=== PATIENT | male | born 1965 | race Two or more races ===

== ENCOUNTER 2024-07-06 09:51 | Emergency (ER) | payer MEDICAID, SELFPAY ==
[2024-07-06 09:52] VITALS: BMI 34.2
[2024-07-06 10:16] VITALS: BP 130/84; PULSE 97; RESP 18; TEMP 37.1; O2SAT 99
--- NOTE | 2024-07-06 10:34 | PD.EDSKIN ---
ED Skin Abcess FB-RME/HPI General Chief complaint: Skin/Abscess/Foreign Body Stated complaint: ABSCESS TO L EYE AND BACK OF HEAD Time Seen by Provider: 07/06/24 10:04 Arrival date/time: 07/06/24 09:51 58-year-old male with medical history significant for diabetes presents emergency department with complaints of abscess to left eyelid as well as to the back of the head patient reports symptoms ongoing for last couple of days patient ports no fever nausea or vomiting patient was seen by PCP and was started on Bactrim Limitations: no limitations Related Data Home Medications ?Medication ?Instructions ?Recorded ?Confirmed naproxen 500 mg tablet 500 mg PO BID 06/19/18 06/19/18 sitagliptin phosphate 50 1 tab PO BID 06/19/18 06/19/18 mg-metformin 1,000 mg tablet (Janumet) Previous Rx's ?Medication ?Instructions ?Recorded clindamycin HCl 150 mg capsule 450 mg (3 x 150 mg) PO TID 7 days 07/06/24 #63 caps hydrocodone 5 mg-acetaminophen 325 1 tab PO BID PRN pain #6 tabs 07/06/24 mg tablet ibuprofen 800 mg tablet 800 mg PO TID PRN pain #30 tabs 07/06/24 Allergies Allergy/AdvReac Type Severity Reaction Status Date / Time No Known Allergies Allergy Verified 07/06/24 09:55 Review of Systems Review of Systems Systems Reviewed: All systems reviewed, normal except as documented Constitutional Constitutional: Reports system reviewed and no additional complaints, except as documented, Denies fever(s) and Denies headache(s) Eyes Eyes: Reports system reviewed and no additional complaints, except as documented and Denies blurry vision ENT Ears, Nose, Mouth, and Throat: Reports system reviewed and no additional complaints, except as documented, Denies headache(s), Denies nasal congestion and Denies nasal discharge Cardiovascular Cardiovascular: Reports system reviewed and no additional complaints, except as documented, Denies chest pain and Denies dyspnea Respiratory Respiratory: Reports system reviewed and no additional complaints, except as documented, Denies chest congestion, Denies cough and Denies dyspnea Gastrointestinal Gastrointestinal: Reports system reviewed and no additional complaints, except as documented and Denies abdominal pain Integumentary/Breasts Skin/Breast: Reports system reviewed and no additional complaints, except as documented, Denies rash and Reports other (Abscess scalp as well as left upper eyelid) Neurologic Neurologic: Reports system reviewed and no additional complaints, except as documented, Reports as per HPI and Denies headache(s) Past Medical History Past Medical History NEUROLOGIC: Negative Neurological Disorders CARDIAC: Negative Cardiac Disorders ED Exam General Limitations: Present no limitations General appearance: Present alert and in no apparent distress Head Head exam: Present atraumatic Eye Eye exam: Present normal appearance, PERRL and EOMI ENT ENT exam: Present normal exam, normal oropharynx and mucous membranes moist Neck Neck exam: Present normal inspection, full ROM and trachea midline Chest Chest inspection: Present normal inspection and symmetric chest wall rise Respiratory Respiratory exam: Present normal lung sounds bilaterally Cardiovascular Cardiovascular exam: Present regular rate, normal rhythm and normal heart sounds Abdominal Exam Abdominal exam: Present soft and normal bowel sounds Extremities Exam Extremities exam: Present normal inspection and full ROM Back Exam Back exam: Present normal inspection and full ROM Neurological Exam Neurological exam: Present alert, oriented X3 and CN II-XII intact Psychiatric Psychiatric exam: Present normal affect and normal mood Skin Skin exam: Present warm, dry and other (Abscess scalp as well as left upper eyelid) Course Quality Measures none Orders Category Date Time Status Clindamycin Vial [Cleocin vial] Med 07/06/24 10:29 Discontinued 600 mg IM X1 ONE Vital Signs Vital signs: Vital Signs Temperature 98.7 F 07/06/24 10:16 Pulse Rate 97 07/06/24 10:16 Respiratory Rate 18 07/06/24 10:16 Blood Pressure 130/84 07/06/24 10:16 Pulse Oximetry (%) 99 07/06/24 10:16 Oxygen Delivery Method Room Air 07/06/24 10:16 O2 saturation 99% room air within normal limits Skin / Abscess / Foreign Body MDM Narrative MDM Narrative:: 58-year-old male with medical history significant for diabetes presents emergency department with complaints of abscess to left eyelid as well as to the back of the head patient reports symptoms ongoing for last couple of days patient ports no fever nausea or vomiting patient was seen by PCP and was started on Bactrim On exam patient has small early abscess to left upper eyelid as well as small abscess to the back of the head these are both hard I do not believe an I&D is indicated at this time Patient given clindamycin here Patient has no evidence of periorbital cellulitis Patient given prescription for clindamycin instructed to return in 2 days for reevaluation possible I&D Patient data External records reviewed:: [facility] previous records Clinical information provided by:: patient Social determinants that could affect healthcare access:: none Patient has the following chronic illnesses:: Diabetes How is presenting disease/condition affected by chronic disease/condition?: exacerbated by Evaluation data The following diagnostics were reviewed and interpreted by me:: other (specify) (N/A) Lab and/or radiology exams considered but not ordered:: Consider not ordered Interpretation Summary: N/A Medications / Prescriptions Medications or Prescriptions considered but not ordered:: Given Medication administrations:: Medication Administration History Discontinued Medications Clindamycin Phosphate (Clindamycin Phos Inj 150 Mg/Ml Vial 6 Ml) 600 mg IM X1 ONE Stop: 07/06/24 10:30 Last Admin: 07/06/24 10:47 Dose: 600 mg Documented By: LF Given Consultations Consultation(s) initiated? (list below): No Diagnosis Skin/Abscess Differential Diagnosis: abscess of skin or subcutaneous tissue and cellulitis Most likely diagnosis given after review of the tests above:: Abscess Admission Indicated Admission indicated?: not indicated Admission Request Was there a request for admission?: No Disposition Plan Disposition Plan: Discharge Discharge Attestation Discharge Attestation: The patient and all family members were given an opportunity to ask questions and understood the discharge instructions. Discharge instructions specifically effects, indications for sooner follow up or return to the emergency department, and the expected course of current diagnosis. Patient condition: Stable Discharge Plan Plan Patient Disposition: HOME (Self Care) Disposition Comment: Stable Prescriptions/Referrals Prescriptions/Med Rec: New ibuprofen 800 mg tablet 800 mg PO TID PRN (Reason: pain) Qty: 30 0RF hydrocodone-acetaminophen 5-325 mg tablet 1 tab PO BID MDD 10 PRN (Reason: pain) Qty: 6 0RF clindamycin HCl 150 mg capsule 450 mg PO TID 7 Days Qty: 63 0RF No Action naproxen 500 mg Tablet 500 mg PO BID sitagliptin phos-metformin [Janumet] 50-1,000 mg Tablet 1 tab PO BID Problem List Clinical Impression: Abscess of skin Patient/Caregiver Discharge Instructions Education Materials: ED Cellulitis Additional Instructions: Please return in 2 days for reevaluation and possible I&D for worsening symptoms return immediately Print Language: Mohawk Stand Alone Forms: Jenny Award Info., Patient Portal Info Letter PA/POULTRY INSEMINATOR Supervising Physician PA/POULTRY INSEMINATOR Supervising Physician: Dr. vega
[2024-07-06] MEDS: CLINDAMYCIN PHOS INJ 150 MG/ML VIAL 6 ML 600 MG IM (10:47)
== END 2024-07-06 11:06 | disposition home or self-care (01) ==
LOC: SERX 10:48
PROVIDERS: Emergency Provider Emergency Medicine; PCP Family Medicine
DX: H00.034 Abscess of left upper eyelid (principal); L02.811 Cutaneous abscess of head [any part, except face]; E11.9 Type 2 diabetes mellitus without complications; Z79.84 Long term (current) use of oral hypoglycemic drugs
CPT/HCPCS: 96372; 99283; J0736

== ENCOUNTER 2024-07-09 06:58 | Emergency (ER) | payer MEDICAID, SELFPAY ==
[2024-07-09 06:59] VITALS: BMI 33.0
[2024-07-09 07:36] VITALS: BP 141/90; PULSE 82; RESP 16; TEMP 36.9; O2SAT 96
--- NOTE | 2024-07-09 08:33 | EDNOTE_ITS ---
<Statement entered by Christina Skelton MD - 07/10/24 06:48> As co-signing physician, I was present and available for consult prn. I concur with the plan and care as documented by the midlevel provider. ED Skin Abcess FB-RME/HPI General Chief complaint: Skin/Abscess/Foreign Body Stated complaint: ABSCESS ON LT EYEBROW AND BACK OF HEAD Time Seen by Provider: 07/09/24 07:03 Arrival date/time: 07/09/24 06:58 RME / HPI RME / HPI narrative: 58-year-old patient presents emergency department with complaint of left eyebrow abscess and abscess to the back of his scalp. Patient states abscess to the back of his scalp he noticed 25 days ago he is currently taking clindamycin 3 times a day. Patient states the abscess to his left eyebrow is improving but wound to the back of his scalp is not healing as he expected it to. Patient admits to history of diabetes but states his diabetes is controlled last blood sugar was 150 mg per DL and he said the last time he checked his hemoglobin A1c he was in the 5 range. He denies fever denies chills pain is worse with palpation of his scalp at the abscess site. Related Data Home Medications ?Medication ?Instructions ?Recorded ?Confirmed naproxen 500 mg tablet 500 mg PO BID 06/19/18 06/19/18 sitagliptin phosphate 50 1 tab PO BID 06/19/18 06/19/18 mg-metformin 1,000 mg tablet (Janumet) Previous Rx's ?Medication ?Instructions ?Recorded clindamycin HCl 150 mg capsule 450 mg (3 x 150 mg) PO TID 7 days 07/06/24 #63 caps hydrocodone 5 mg-acetaminophen 325 1 tab PO BID PRN pain #6 tabs 07/06/24 mg tablet ibuprofen 800 mg tablet 800 mg PO TID PRN pain #30 tabs 07/06/24 hydrocodone 5 mg-acetaminophen 325 1 tab PO Q8H PRN pain #10 tabs 07/09/24 mg tablet Allergies Allergy/AdvReac Type Severity Reaction Status Date / Time No Known Allergies Allergy Verified 07/06/24 09:55 Review of Systems Review of Systems Systems Reviewed: All systems reviewed, normal except as documented Constitutional Constitutional: Reports system reviewed and no additional complaints, except as documented ENT Ears, Nose, Mouth, and Throat: Reports system reviewed and no additional complaints, except as documented Cardiovascular Cardiovascular: Reports system reviewed and no additional complaints, except as documented Respiratory Respiratory: Reports system reviewed and no additional complaints, except as documented Musculoskeletal Musculoskeletal: Reports system reviewed and no additional complaints, except as documented Neurologic Neurologic: Reports system reviewed and no additional complaints, except as documented ED Exam General General appearance: Present alert and in no apparent distress Head Head exam: Present atraumatic and normocephalic ENT ENT exam: Present normal exam and normal oropharynx Neck Neck exam: Present normal inspection; Absent lymphadenopathy Expanded Neck Exam Neck image: 2 1. Abscess Respiratory Respiratory exam: Present normal lung sounds bilaterally Cardiovascular Cardiovascular exam: Present regular rate Extremities Exam Extremities exam: Present normal inspection Course Quality Measures none Orders Category Date Time Status Clindamycin Vial [Cleocin vial] Med 07/09/24 08:32 Once 600 mg IM X1 ONE HYDROcodone*/APAP 5/325 [[place] 5/325] Med 07/09/24 08:32 Once 1 tab PO X1 ONE Vital Signs Vital signs: Vital Signs Temperature 98.4 F 07/09/24 07:36 Pulse Rate 82 07/09/24 07:36 Respiratory Rate 16 07/09/24 07:36 Blood Pressure 141/90 H 07/09/24 07:36 Pulse Oximetry (%) 96 07/09/24 07:36 Oxygen Delivery Method Room Air 07/09/24 07:36 Skin / Abscess / Foreign Body MDM Narrative MDM Narrative:: 48-year-old patient presents emergency department with complaint of abscess to the back of scalp patient is currently on clindamycin. Patient given a shot of clindamycin in ED and told to continue his medication as prescribed patient also encouraged to apply warm compress to abscess site to improve drainage. Patient remained afebrile nontoxic-appearing throughout ED stay. Stable to [place] home. Patient data External records reviewed:: None Clinical information provided by:: none Social determinants that could affect healthcare access:: none Patient has the following chronic illnesses:: DM How is presenting disease/condition affected by chronic disease/condition?: e xacerbated by Evaluation data The following diagnostics were reviewed and interpreted by me:: other (specify) (na) Lab and/or radiology exams considered but not ordered:: na Interpretation Summary: na Medications / Prescriptions Medications or Prescriptions considered but not ordered:: both considered and ordered Medication administrations:: Medication Administration History Hydrocodone Bitart/Acetaminophen (Hydrocodone/Apap 5/325 Tablet) 1 tab PO X1 ONE Stop: 07/09/24 08:33 Clindamycin Phosphate (Clindamycin Phos Inj 150 Mg/Ml Vial 6 Ml) 600 mg IM X1 ONE Stop: 07/09/24 08:33 per above Consultations Consultation(s) initiated? (list below): No Diagnosis Skin/Abscess Differential Diagnosis: abscess of skin or subcutaneous tissue, viral exanthem, dermatophytosis and urticaria Most likely diagnosis given after review of the tests above:: abscess Admission Indicated Admission indicated?: not indicated Admission Request Was there a request for admission?: No Disposition Plan Disposition Plan: Discharge Discharge Attestation Discharge Attestation: The patient and all family members were given an opportunity to ask questions and understood the discharge instructions. Discharge instructions specifically effects, indications for sooner follow up or return to the emergency department, and the expected course of current diagnosis. Patient condition: Stable Discharge Plan Plan Patient Disposition: HOME (Self Care) Patient condition on transfer: Stable Prescriptions/Referrals Prescriptions/Med Rec: New hydrocodone-acetaminophen 5-325 mg tablet 1 tab PO Q8H MDD 10 PRN (Reason: pain) Qty: 10 0RF No Action naproxen 500 mg Tablet 500 mg PO BID sitagliptin phos-metformin [Janumet] 50-1,000 mg Tablet 1 tab PO BID ibuprofen 800 mg tablet 800 mg PO TID PRN (Reason: pain) Qty: 30 0RF hydrocodone-acetaminophen 5-325 mg tablet 1 tab PO BID MDD 10 PRN (Reason: pain) Qty: 6 0RF clindamycin HCl 150 mg capsule 450 mg PO TID 7 Days Qty: 63 0RF Referrals: Temporary Provider,ED [Primary Care Provider] - In 1 week Problem List Clinical Impression: Abscess of skin Patient/Caregiver Discharge Instructions Education Materials: ED Abscess Antibiotic ... Print Language: Korean Stand Alone Forms: Jenny Award Info., Patient Portal Info Letter
[2024-07-09] MEDS: HYDROcodone/APAP 5/325 TABLET 1 TAB PO (08:48)
[2024-07-09] MEDS: CLINDAMYCIN PHOS INJ 150 MG/ML VIAL 6 ML 600 MG IM (08:49)
== END 2024-07-09 08:52 | disposition home or self-care (01) ==
LOC: SERX 08:53
PROVIDERS: Emergency Provider Emergency Medicine
DX: L02.811 Cutaneous abscess of head [any part, except face] (principal); E11.9 Type 2 diabetes mellitus without complications; L02.01 Cutaneous abscess of face
CPT/HCPCS: 96372; 99283; J0736; A9270

== ENCOUNTER 2025-05-06 11:00 | Outpatient (RCR) | payer MEDICAID, SELFPAY ==
--- NOTE | 2025-04-30 14:01 | PTNOTE_ITS ---
PT OP Initial Eval Patient Information Outpatient Physical Therapy Treatment Date: 04/30/25 Visit Reasons: RIGHT ACL RECONSTRUCTION Medical Diagnosis: z98.890 Treatment Dx #1: Right Knee Pain Treatment Dx #2: Right Knee Mobility Deficits Start of Care: 04/30/25 Date of Onset: 03/10/25 Smoking Status Smoking Status: Current every day smoker (yes) Cessation Counseling Provided: JESSIE was advised that quitting smoking is the single most important factor to protect the health of themselves and their family. Discussed the benefits of quitting smoking with patient. Encouraged patient to quit smoking and provided Cessation assistance materials and resources. Tobacco Use: Cigarette Years smoked: 20 Are you interested in quitting?: No Would you like additional Smoking Cessation Counseling?: No Initial Assessment Subjective: Pt is a 59 y/o male s/p right ACL reconstruction 03/10/25 due to knee injury ~ 1 year ago. Pt still has pain (6/10) with activities. Pt has limitation with walking, standing, chores, self care, balance, taking care of his , squatt ing, stairs, and performing recreational activities. Objective: Right Knee AROM: -12 deg to 100 deg Right Knee MMTs: grossly 3+/5 Right Hip MMTs: grossly 3+/5 Active SLR: 90 deg Knee Cap Mobility: hypomobile in all plane SLS: NT Assessment: Pt demonstrate right knee mobility and strength deficits s/p ACL reconstruction leading to difficulty with ADLs. Pt will benefit from physical therapy to increase ROM, strength, and work on stability. Short Term and [employer] Goals 1) Increase right knee AROM WNL in 12 wks to be able to perform recreational activities 2) Increase right knee MMTs grossly to 4/5 in 12 wks to be able to perform sq uatting activities 3) Decrease knee pain to 2/10 in 12 wks to be able to stand more than 30 mins 4) Increase right hip MMTs grossly to 4/5 in 12 wks to be able to walk more than 30 mins 5) Increase SLS to 20 sec in 12 wks to be able to perform self care activities 6) Indep with HEP Treatment Plan 1) Manual Therapy 2) Therapeutic Activities 3) Therapeutic Exercises 4) Modalities (ice, heat) 5) Balance Training 6) Gait Training Frequency and Duration: 2 x wk for 12 wks Certification Dates: 04/30/25 to 07/31/25 Procedure Charges OP PT Eval Mod Complex 30 minutes: Yes
--- NOTE | 2025-05-04 11:48 | PT.ODAYNRPT ---
PT Outpatient Daily Note OP Daily Note Outpatient Physical Therapy Treatment Date: 05/04/25 Visit Reasons: RIGHT ACL RECONSTRUCTION Subjective: Pt uses recumbent bike daily and ice 3-4 x. Pt's knee is a little swollen this morning; patient was playing with [employer]. Objective: Please see flow chart for list of ther ex performed Assessment: improved knee flexion AAROM post PT session. Pt decline ice and will use modality at home. Plan: Continue with PT Length of Time (minutes) of Treatment: 30 Minutes Procedure Charges Therapeutic Exercise 30 minutes: Yes
--- NOTE | 2025-05-06 11:18 | PT.ODAYNRPT ---
PT Outpatient Daily Note OP Daily Note Outpatient Physical Therapy Treatment Date: 05/06/25 Visit Reasons: RIGHT ACL RECONSTRUCTION Subjective: Pt's knee is ache and notice knee cap is popping. Pt mentioned he continues to care for his at home since she is paraplegic Objective: Please see flow chart for list of ther ex performed Assessment: difficulty completing SAQ and Hs stretch due to knee pain. Modified Hs stretch to 15 sec with better tolerance. Plan: Continue with PT Length of Time (minutes) of Treatment: 30 Minutes Procedure Charges Therapeutic Exercise 30 minutes: Yes
== END 2025-05-07 23:59 | disposition home or self-care (01) ==
LOC: CPTX 11:00
PROVIDERS: PCP Orthopaedic Surgery; Referring Provider Orthopaedic Surgery; Visit Provider Orthopaedic Surgery
DX: M25.561 Pain in right knee (principal); R26.2 Difficulty in walking, not elsewhere classified; R26.89 Other abnormalities of gait and mobility; Z98.890 Other specified postprocedural states; Z71.6 Tobacco abuse counseling; F17.210 Nicotine dependence, cigarettes, uncomplicated
CPT/HCPCS: 97110; 97162

== ENCOUNTER 2025-06-02 14:30 | Outpatient (RCR) | payer MEDICAID, SELFPAY ==
--- NOTE | 2025-05-14 15:11 | PT.ODAYNRPT ---
PT Outpatient Daily Note OP Daily Note Outpatient Physical Therapy Treatment Date: 05/14/25 Visit Reasons: RIGHT ACL REPAIR Subjective: Pt reports sometimes he feels clicking in his knee and he sometimes sits on the edge of his recliner with knee bent then rocks recliner forward to bend the knee further. Objective: Please see flow sheet for ther ex list. Assessment: Pt educated on avoiding aggressive flexion, deep squats pivoting or kneeling on R knee to allow for healing due to current post op time line. Plan: Continue with poC. Length of Time (minutes) of Treatment: 30 Minutes Procedure Charges Therapeutic Exercise 30 minutes: Yes
--- NOTE | 2025-06-02 15:11 | PT.ODAYNRPT ---
PT Outpatient Daily Note OP Daily Note Outpatient Physical Therapy Treatment Date: 06/02/25 Visit Reasons: RIGHT ACL REPAIR Subjective: Pt reports knee is really stiff and painful today. As per pt he has been doing HEP 2x or more a day and riding stationary bicycle at home for about a mile. Objective: Please see flow sheet for ther ex list. Assessment: Pt presents in clinic with high pain. Pt educated and instructed to give himself day in between HEP and allow for rest due to current post op time line want to avoid excessive stress to healing tissue pt agreed. Recommend pt to continue cold pack at home. Plan: Continue with poC. Length of Time (minutes) of Treatment: 30 Minutes Procedure Charges Therapeutic Exercise 30 minutes: Yes
== END 2025-06-06 23:59 | disposition home or self-care (01) ==
LOC: CPTX 14:30
PROVIDERS: PCP Orthopaedic Surgery; Referring Provider Orthopaedic Surgery; Visit Provider Orthopaedic Surgery
DX: M25.561 Pain in right knee (principal); R26.2 Difficulty in walking, not elsewhere classified; R26.89 Other abnormalities of gait and mobility; Z98.890 Other specified postprocedural states
CPT/HCPCS: 97110

== ENCOUNTER 2025-07-07 11:00 | Outpatient (RCR) | payer MEDICAID, SELFPAY ==
--- NOTE | 2025-06-22 16:05 | PT.ODAYNRPT ---
PT Outpatient Daily Note OP Daily Note Outpatient Physical Therapy Treatment Date: 06/22/25 Visit Reasons: RT ACl repair Subjective: Pt reports R knee pain has reduced since lessening his work outs, performing every other day. Pt also mentioned that he feels a pointy bump on the medial incision below patella. Pt also mentiond that a week ago he started to use house steps for exercises. Objective: Please see flow sheet for ther ex list. Assessment: Small bump under incision, palpable and minimal TTP. Pt instructed to monitor and to report when follow up with surgeon, no redness or drainage. Pt instructed on step up exercise, pt tolerated well. Plan: Continue with pOC. Progress per post op protocol. Length of Time (minutes) of Treatment: 30 Minutes Procedure Charges Therapeutic Exercise 30 minutes: Yes
--- NOTE | 2025-07-07 12:43 | PT.ODAYNRPT ---
PT Outpatient Daily Note OP Daily Note Outpatient Physical Therapy Treatment Date: 07/07/25 Visit Reasons: RT ACl repair Subjective: Pt reports knee has been feeling better, has really been working on HEP. Objective: Please see flow sheet for ther ex list. Assessment: Pt ambulates with improved gait pattern and ROm continues to improve. Plan: Continue with poC. Length of Time (minutes) of Treatment: 30 Minutes Procedure Charges Therapeutic Exercise 30 minutes: Yes
--- NOTE | 2025-07-20 12:52 | PT.ODS1RPT ---
PT OP Progress/Discharge Note Date of Service: 07/20/25 Progress Note/DC Note Progress Note/Discharge Note: DC Note Patient Information Visit Reasons: RT ACl repair Service Discharge Date: 07/20/25 Status Assessment: Pt has been seen for 5 visits (eval + 4 visits). Pt came in 07/20/25 and mentioned he will be having surgery again since one of the anchor came off loose. At this time Pt will be d/c from care due to change in medical condition. Pt did not meet set goals in therapy; thank you for your referrals.
== END 2025-07-07 23:59 | disposition home or self-care (01) ==
LOC: CPTX 11:00
PROVIDERS: PCP Orthopaedic Surgery; Referring Provider Orthopaedic Surgery; Visit Provider Orthopaedic Surgery
DX: M25.561 Pain in right knee (principal); R26.2 Difficulty in walking, not elsewhere classified; R26.89 Other abnormalities of gait and mobility; S83.511D Sprain of anterior cruciate ligament of right knee, subsequent encounter; X58.XXXD Exposure to other specified factors, subsequent encounter
CPT/HCPCS: 97110